=== PATIENT | female | born 1970 | race Caucasian/White ===

== ENCOUNTER → 2016-08-11 | Outpatient (CLI) | payer OTHER ==
[~2016-08-11] MED LIST: BENADRYL 25MG C25 MG PO; HYDROCODONE-APA1 TA2 PO
--- NOTE | 2016-08-13 15:17 | RADIOLOGY REPORT PS360 ---
DIG MAMM-SCREEN RUBEN W/CAD CAD Screening ORDERING PHYSICIAN : Turner Pastrana MD PATIENT AGE: 46 years GENDER: Female COMPARISON: Previous mammograms: [facility] mammogram July 2013, 2013 and 2014. Also previous studies from [facility] from 2011 and 2010 INDICATION: Routine screening no hormones. No new complaints. Noncontributory family history. TECHNIQUE: Standard CC and MLO images were obtained. R2 CAD reviewed. FINDINGS: Dense inhomogeneous fibroglandular pattern decreases sensitivity of mammography.] E no dominant mass or suspicious prominent new findings. RIGHT BREAST: The density seen on today's MLO view is similar to 2013 mammogram and 2012. This density seems to dissipate also on the cc view. Cc view appears unchanged as prior studies. LEFT BREAST: Left breast stable with no significant new findings.. IMPRESSION:... .. Dense inhomogeneous breast bilaterally which does decrease sensitivity of mammography. No significant new findings. . Follow-up in one year, and monthly self breast exam should be emphasized in these dense breast. If any palpable areas should arise ultrasound is useful compliment to mammography in breast of this dense character. BI-RADS CATEGORY: 2_Benign RECOMMENDED FOLLOWUP: 12M 12 MONTH FOLLOW-UP (A letter has been sent to the patient regarding results of the study.)
--- NOTE | 2016-08-13 15:17 | RADIOLOGY REPORT PS360 ---
DIG MAMM-SCREEN RUBEN W/CAD CAD Screening ORDERING PHYSICIAN : Turner Pastrana MD PATIENT AGE: 46 years GENDER: Female COMPARISON: Previous mammograms: [facility] mammogram July 2013, 2013 and 2014. Also previous studies from [facility] from 2011 and 2010 INDICATION: Routine screening no hormones. No new complaints. Noncontributory family history. TECHNIQUE: Standard CC and MLO images were obtained. R2 CAD reviewed. FINDINGS: Dense inhomogeneous fibroglandular pattern decreases sensitivity of mammography.] E no dominant mass or suspicious prominent new findings. RIGHT BREAST: The density seen on today's MLO view is similar to 2013 mammogram and 2012. This density seems to dissipate also on the cc view. Cc view appears unchanged as prior studies. LEFT BREAST: Left breast stable with no significant new findings.. IMPRESSION:... .. Dense inhomogeneous breast bilaterally which does decrease sensitivity of mammography. No significant new findings. . Follow-up in one year, and monthly self breast exam should be emphasized in these dense breast. If any palpable areas should arise ultrasound is useful compliment to mammography in breast of this dense character. BI-RADS CATEGORY: 2_Benign RECOMMENDED FOLLOWUP: 12M 12 MONTH FOLLOW-UP (A letter has been sent to the patient regarding results of the study.)
== END ==
LOC: RAD 10:26
DX: Z12.31 Encounter for screening mammogram for malignant neoplasm of breast (principal)
CPT/HCPCS: G0202

== ENCOUNTER → 2016-09-02 | Outpatient (CLI) | payer OTHER ==
--- NOTE | 2016-09-02 13:28 | RADIOLOGY REPORT PS360 ---
HIP LT 2-3V W/PELVIS IF PERFOR HISTORY: BILAT HIP PAIN ORDERING PHYSICIAN: Mick Han MD PATIENT AGE: 46 years COMPARISON: None FINDINGS: No fracture or dislocation is evident. No significant degenerative change. No lytic or blastic change. Unremarkable soft tissues. There is minimal calcification superior to the greater trochanter. There is a defect in the femoral shaft from prior intramedullary cristela placement. IMPRESSION: Postsurgical change, no acute finding
--- NOTE | 2016-09-02 13:30 | RADIOLOGY REPORT PS360 ---
FEMUR-LT-2 VIEWS HISTORY: Left femur pain with history of fracture BILAT HIP PAIN ORDERING PHYSICIAN: Mick Han MD PATIENT AGE: 46 years COMPARISON: None FINDINGS: No acute fracture or dislocation. There is cortical thickening involving the mid shaft of the femur medially. This is likely related to old fracture with callus formation. There is some faint lucency noted in this region. This is of questionable clinical significance actually better seen on the hip study. Correlation with old films needed. Lucency is noted in the proximal femoral shaft and prior intramedullary cristela placement. No lytic or blastic change. No abnormal periosteal reaction or radiopaque foreign body. IMPRESSION: Old mid shaft femoral neck fracture with tract from intramedullary cristela. Cortical thickening mid shaft of the femur with some minimal lucency noted in this area of questionable clinical significance. Lucency is along the intramedullary surface. Recommend old film for comparison.
--- NOTE | 2016-09-02 13:31 | RADIOLOGY REPORT PS360 ---
HIP RT 2-3V W/PELVIS IF PERFOR HISTORY: BILAT HIP PAIN ORDERING PHYSICIAN: Mick Han MD PATIENT AGE: 46 years COMPARISON: None FINDINGS: No fracture or dislocation is evident. No significant degenerative change. No lytic or blastic change. Unremarkable soft tissues. Small amount soft tissue calcification noted superior to the greater trochanter. There is a defect from an old intramedullary cristela. IMPRESSION: Postsurgical change, no acute finding.
== END ==
LOC: RAD 09:58
DX: M25.551 Pain in right hip (principal); M25.552 Pain in left hip

== ENCOUNTER → 2017-05-02 | Outpatient (CLI) | payer OTHER ==
[2017-05-02 08:52] LABS: AEROMONAS NOT DETECTED (NOT DETECTE); ASTROVIRUS NOT DETECTED (NOT DETECTE); CYCLOSPORA CAYETANENSIS NOT DETECTED (NOT DETECTE); E COLI O157 NOT DETECTED (NOT DETECTE); ENTEROAGGREGATIVE E COLI NOT DETECTED (NOT DETECTE); ENTEROPATHOGENIC E COLI NOT DETECTED (NOT DETECTE); ENTEROTOXIGENIC E COLI NOT DETECTED (NOT DETECTE); NOROVIRUS NOT DETECTED (NOT DETECTE); SAPOVIRUS NOT DETECTED (NOT DETECTE); SHIGELLA/ENTEROINVASIVE E COLI NOT DETECTED (NOT DETECTE); VIBRIO CHOLERAE NOT DETECTED (NOT DETECTE)
[2017-05-02 15:54] LABS: SHIGA-LIKE TOXIN PROD. E COLI DETECTED (NOT DETECTE)
== END ==
LOC: LAB 08:49
PROVIDERS: Nurse Practitioner
DX: R19.7 Diarrhea, unspecified (principal)